=== PATIENT | female | born 1985 | race Hispanic/Latino ===

== ENCOUNTER → 2023-10-15 | Emergency (ER) | payer SELFPAY ==
[~2023-10-15] VITALS: Ht 157.5 cm; Wt 131.1 kg
[~2023-10-15] MED LIST: AMOX1TAB16 PO; GOLY4L PO
[2023-10-15 09:37] VITALS: BP 159/92; PULSE 94; RESP 20; TEMP 99; O2SAT 96
[2023-10-15 10:07] LABS: APPEARANCE,URINE CLOUDY (CLEAR); BILIRUBIN,URINE NEGATIVE (NEGATIVE); COLOR,URINE LIGHT-YELLOW (YELLOW); GLUCOSE, URINE (UA) NEGATIVE (NEGATIVE); KETONES,URINE NEGATIVE (NEGATIVE); LEUKOCYTE ESTERASE ,URINE 500 Leu/uL (NEGATIVE); NITRATE,URINE NEGATIVE (NEGATIVE); OCCULT BLOOD,URINE SMALL (NEGATIVE); PH,URINE 5.5 (5.0-8.0); PROTEIN,URINE 70 mg/dL (NEGATIVE); UROBILINOGEN,URINE 0.2 mg/dL (0.2-1.0)
[2023-10-15 10:10] LABS: ADD UA MICROSCOPIC YES
[2023-10-15 10:13] LABS: BACTERIA,URINE FEW /HPF (None Seen); MUCUS,URINE RARE LPF (None Seen); SQUAMOUS EPITHELIAL CELL,UR MOD /HPF (0-2); WBC CLUMP MOD /HPF (0-1); WBC,URINE TNTC /HPF (0-1)
== END ==
LOC: EDH 09:27
DX: N30.00 Acute cystitis without hematuria (principal); K59.00 Constipation, unspecified
CPT/HCPCS: 81001; 81025; 87086; 87186